=== PATIENT | male | born 1985 | race Caucasian/White ===

== ENCOUNTER 2017-01-10 15:40 | Emergency (ER) | payer MEDICAID ==
[~2017-01-10] VITALS: Ht 180.3 cm; Wt 122.5 kg
[2017-01-10 17:11] VITALS: BP 148/76
== END 2017-01-10 17:11 | disposition home or self-care (01) ==
LOC: ED 15:40
DX: S60.222A Contusion of left hand, initial encounter (principal); W20.8XXA Other cause of strike by thrown, projected or falling object, initial encounter; Y93.89 Activity, other specified; Y92.89 Other specified places as the place of occurrence of the external cause; Y99.8 Other external cause status

== ENCOUNTER 2017-07-23 18:36 | Inpatient (IN) | payer MEDICAID ==
[~2017-07-23] VITALS: Ht 180.3 cm; Wt 116.1 kg
[2017-07-23 20:52] LABS: BASOPHIL % 0.9 % (0-2); PLATELET COUNT 184 x10^3mcL (130-400); RED CELL DISTRIBUTION WIDTH 13.3 % (11.5-14.5)
[2017-07-23 20:57] LABS: CALCIUM 8.2 mg/dL (8.5-10.1); CARBON DIOXIDE 30.8 mmol/L (21-32); CHLORIDE SERUM 106 mmol/L (98-107); CREATININE SERUM 1.4 mg/dL (0.7-1.3); GFR1 > 60 mL/min; GLUCOSE SERUM 105 mg/dL (74-106); POTASSIUM SERUM 3.9 mmol/L (3.5-5.1); SODIUM SERUM 144 mmol/L (136-145)
[2017-07-23 21:02] LABS: ALBUMIN 3.4 g/dL (3.4-5.0); ALKALINE PHOSPHATASE 113 U/L (46-116); ALT/SGPT 24 U/L (16-63); AST/SGOT 15 U/L (15-37); BILIRUBIN TOTAL 0.3 mg/dL (0.20-1.00); LIPASE 106 IU/L (73-393); TOTAL PROTEIN, SERUM 6.9 g/dL (6.4-8.2)
[2017-07-23 21:35] LABS: AMPHETAMINE QUAL UR POSITIVE (NEG <=1000)
[2017-07-23 23:18] VITALS: BP 131/87
[2017-07-23 23:24] VITALS: Ht 180.3 cm; Wt 116.1 kg
[2017-07-24 00:25] LABS: MAGNESIUM 2.2 mg/dL (1.8-2.4); PHOSPHOROUS 4.3 mg/dL (2.5-4.9)
[2017-07-24 00:36] LABS: FREE T4 1.07 ng/dL (0.76-1.46); FREE THYROXINE INDEX 2.7 ug/dL (1.4-4.5); T4(THYROXINE) 7.3 ug/dL (4.7-13.3)
[2017-07-24 00:44] LABS: T3 TOTAL 1.25 ng/mL
[2017-07-24 01:40] LABS: microscopic required? YES; urine erythrocyte NEGATIVE (NEGATIVE)
[2017-07-24 05:40] VITALS: BP 123/76
[2017-07-24 07:13] LABS: BASOPHIL % 0.2 % (0-2); PLATELET COUNT 157 x10^3mcL (130-400); RED CELL DISTRIBUTION WIDTH 13.2 % (11.5-14.5)
[2017-07-24 07:54] LABS: CARBON DIOXIDE 28.3 mmol/L (21-32); CHLORIDE SERUM 107 mmol/L (98-107); CREATININE SERUM 0.9 mg/dL (0.7-1.3); GFR1 > 60 mL/min; GLUCOSE SERUM 93 mg/dL (74-106); POTASSIUM SERUM 3.7 mmol/L (3.5-5.1); SODIUM SERUM 142 mmol/L (136-145); TRIGLYCERIDES 103 mg/dL (<150)
[2017-07-24 07:59] LABS: CHOLESTEROL 119 mg/dL (<200); CHOLESTEROL/HDL RATIO 3.8; HDL CHOLESTEROL 31 mg/dL (40-60)
[2017-07-24 09:21] VITALS: BP 145/87
[2017-07-24 14:08] VITALS: BP 104/80
[2017-07-24] MEDS ORDERED: PEPCID20 MG PO (17:33)
[2017-07-24 17:39] VITALS: BP 104/80
[2017-07-24 18:13] VITALS: BP 120/81
== END 2017-07-24 19:18 | disposition home or self-care (01) | DRG 243 ==
LOC: ED 18:36 → DU 22:12 → ED 22:43 → DU 22:50
PROVIDERS: Emergency Medicine; ADMIT Family Medicine
DX: K21.9 Gastro-esophageal reflux disease without esophagitis (principal); N17.0 Acute kidney failure with tubular necrosis; G92 Toxic encephalopathy; F14.10 Cocaine abuse, uncomplicated; F15.10 Other stimulant abuse, uncomplicated; F12.10 Cannabis abuse, uncomplicated; F10.10 Alcohol abuse, uncomplicated; E83.51 Hypocalcemia; E66.9 Obesity, unspecified; Z68.37 Body mass index [BMI] 37.0-37.9, adult; F17.210 Nicotine dependence, cigarettes, uncomplicated; F43.23 Adjustment disorder with mixed anxiety and depressed mood
CPT/HCPCS: 83880; 84439; 90658; 99406; G0480; J7030

== ENCOUNTER 2018-07-29 23:01 | Emergency (ER) | payer MEDICAID ==
[~2018-07-29] VITALS: Ht 175.3 cm; Wt 123.4 kg
[~2018-07-29 23:01] MED LIST: PEPCID20 MG PO
[2018-07-29 23:33] VITALS: BP 169/103; Ht 175.3 cm; Wt 123.4 kg
== END 2018-07-30 02:41 | disposition left against medical advice (07) ==
LOC: ED 23:01
DX: Z53.21 Procedure and treatment not carried out due to patient leaving prior to being seen by health care provider (principal)

== ENCOUNTER 2018-10-30 09:43 | Emergency (ER) | payer MEDICAID ==
[~2018-10-30] VITALS: Ht 177.8 cm; Wt 123.4 kg
[2018-10-30 09:49] VITALS: Ht 177.8 cm; Wt 123.4 kg
[2018-10-30 10:59] LABS: microscopic required? YES; urine erythrocyte NEGATIVE (NEGATIVE)
[2018-10-30 12:04] VITALS: BP 165/81
== END 2018-10-30 12:04 | disposition home or self-care (01) ==
LOC: ED 09:43
PROVIDERS: Emergency Medicine
DX: N45.1 Epididymitis (principal); Z98.890 Other specified postprocedural states
CPT/HCPCS: 87491; 87591; J0696; J1885

== ENCOUNTER 2018-12-20 11:21 | Emergency (ER) | payer MEDICAID ==
[~2018-12-20] VITALS: Ht 167.6 cm; Wt 90.7 kg
[2018-12-20 11:49] VITALS: Ht 167.6 cm; Wt 90.7 kg
[2018-12-20 12:12] LABS: BASOPHIL % 0.3 % (0-2); PLATELET COUNT 210 x10^3mcL (130-400); RED CELL DISTRIBUTION WIDTH 13.6 % (11.5-14.5)
[2018-12-20 12:13] LABS: CALCIUM 8.5 mg/dL (8.5-10.1); CHLORIDE SERUM 103 mmol/L (98-107); CREATININE SERUM 0.8 mg/dL (0.7-1.3); GFR1 > 60 mL/min; GLUCOSE SERUM 101 mg/dL (74-106); POTASSIUM SERUM 3.3 mmol/L (3.5-5.1); SODIUM SERUM 140 mmol/L (136-145)
[2018-12-20 12:18] LABS: ALBUMIN 3.6 g/dL (3.4-5.0); ALKALINE PHOSPHATASE 103 U/L (46-116); ALT/SGPT 52 U/L (16-63); AST/SGOT 31 U/L (15-37); BILIRUBIN TOTAL 0.45 mg/dL (0.20-1.00); TOTAL PROTEIN, SERUM 7.4 g/dL (6.4-8.2)
[2018-12-20 14:26] VITALS: BP 171/101
== END 2018-12-20 14:56 | disposition other institution (70) ==
LOC: ED 11:21
PROVIDERS: Emergency Medicine
DX: R07.89 Other chest pain (principal); F15.10 Other stimulant abuse, uncomplicated; Z98.890 Other specified postprocedural states
CPT/HCPCS: 36415; Q0092

== ENCOUNTER 2018-12-20 11:21 | Emergency (ER) | payer OTHER | END 2018-12-20 14:56 | disposition other institution (70) | LOC: ED 11:21 | DX: Z02.89 Encounter for other administrative examinations (principal) ==